=== PATIENT | female | born 1985 | race Caucasian/White ===

== ENCOUNTER 2021-04-17 11:53 | Emergency (ER) | payer OTHER ==
[~2021-04-17] VITALS: Ht 177.8 cm; Wt 65.0 kg
[2021-04-17] MEDS ORDERED: ONDANSETRON PF 4 MG/2 ML VIAL. ONE (12:12)
[2021-04-17] MEDS ORDERED: ONDANSETRON PF 4 MG/2 ML VIAL. IVP ONE (12:15)
[2021-04-17] MEDS ORDERED: IV NORMAL SALINE 1,000ML 1,000 ML IV SCH (12:15)
--- NOTE | 2021-04-17 12:16 | PHYS DOC ---
Past History Past Surgical History: No Surgical History (JOSEFINA RASHID APRN) General Adult EDM: Chief Complaint: ABDOMINAL PAIN HPI: HPI: Patient is a 35-year-old female who presents to the ER today for right lower quadrant pain that started this morning. She rates the pain 7 out of 10. It does not radiate. She took ibuprofen prior to arrival. Patient reports nausea also. She denies vomiting, diarrhea, fevers, flank pain, hematuria, dysuria, blood in her stools. Patient has a history of anxiety and migraines. (JOSEFINA RASHID APRN) Review of Systems: Review of Systems: 14 body systems of the review of systems have been reviewed. See HPI for pertinent positive and negative responses, otherwise all other systems are negative, nonpertinent or noncontributory (JOSEFINA RASHID APRN) Current Medications: Current Meds: Current Medications Medications (Trade) Dose Ordered Sig/Chitra Start Time Stop Time Status Last Admin Dose Admin Fentanyl Citrate (Fentanyl 2ml Vial) 50 mcg 1X ONCE 04/17/21 12:15 04/17/21 12:16 Ondansetron HCl (Zofran) 4 mg 1X ONCE 04/17/21 12:15 04/17/21 12:16 Sodium Chloride 1,000 ml @ 1,000 mls/hr Q1H 04/17/21 12:15 04/17/21 13:14 (JOSEFINA RASHID APRN) Allergies: Allergies: Allergies Coded Allergies Type Severity Reaction Last Updated Verified Penicillins Allergy Unknown 04/17/21 Yes (JOSEFINA RASHID APRN) Physical Exam: PE: Constitutional: Well developed, well nourished, no acute distress, non-toxic appearance. [] HENT: Normocephalic, atraumatic Eyes: PERRL, EOMI, conjunctiva normal, no discharge. [] Neck: Normal range of motion, no stridor Cardiovascular:Heart rate regular rhythm, no murmur [] Lungs & Thorax: Bilateral breath sounds clear to auscultation [] Abdomen: Bowel sounds normal, soft, right lower quadrant pain with palpation, negative Rovsing sign, negative Verdin sign no masses, no pulsatile masses. [] Skin: Warm, dry, no erythema, no rash. [] Back: Normal range of motion, negative CVA tenderness Extremities: No tenderness, no cyanosis, no clubbing, ROM intact, no edema. [] Neurologic: Alert and oriented X 3, normal motor function, normal sensory function, no focal deficits noted. [] Psychologic: Affect normal, judgement normal, mood normal. [] (JOSEFINA RASHID APRN) Current Patient Data: Labs: Laboratory Tests Test 04/17/21 12:06 04/17/21 13:00 04/17/21 13:17 White Blood Count 6.7 x10^3/uL Red Blood Count 4.30 x10^6/uL Hemoglobin 13.1 g/dL Hematocrit 39.8 % Mean Corpuscular Volume 93 fL Mean Corpuscular Hemoglobin 31 pg Mean Corpuscular Hemoglobin Concent 33 g/dL Red Cell Distribution Width 14.3 % Platelet Count 303 x10^3/uL Neutrophils (%) (Auto) 48 % Lymphocytes (%) (Auto) 34 % Monocytes (%) (Auto) 8 % Eosinophils (%) (Auto) 8 % Basophils (%) (Auto) 2 % Neutrophils # (Auto) 3.2 x10^3uL Lymphocytes # (Auto) 2.3 x10^3/uL Monocytes # (Auto) 0.6 x10^3/uL Eosinophils # (Auto) 0.5 x10^3/uL Basophils # (Auto) 0.1 x10^3/uL Sodium Level 138 mmol/L Potassium Level 3.6 mmol/L Chloride Level 105 mmol/L Carbon Dioxide Level 21 mmol/L Anion Gap 12 Blood Urea Nitrogen 11 mg/dL Creatinine 0.9 mg/dL Estimated GFR (Cockcroft-Gault) 71.3 BUN/Creatinine Ratio 12 Glucose Level 114 mg/dL Calcium Level 9.1 mg/dL Total Bilirubin 0.4 mg/dL Aspartate Amino Transf (AST/SGOT) 23 U/L Alanine Aminotransferase (ALT/SGPT) 27 U/L Alkaline Phosphatase 72 U/L Total Protein 7.2 g/dL Albumin 4.1 g/dL Albumin/Globulin Ratio 1.3 Lipase 109 U/L Urine Collection Type Unknown Urine Color Yellow Urine Clarity Cloudy Urine pH 8.5 Urine Specific [place] 1.015 Urine Protein Neg Urine Glucose (UA) Neg mg/dL Urine Ketones (Stick) Neg mg/dL Urine Blood Neg Urine Nitrite Neg Urine Bilirubin Neg Urine Urobilinogen Dipstick 0.2 mg/dL Urine Leukocyte Esterase Neg Urine RBC 0 /HPF Urine WBC 0 /HPF Urine Amorphous Sediment Present /HPF Urine Bacteria Few /HPF Bedside Urine HCG, Qualitative hcg negative Current Medications Medications (Trade) Dose Ordered Sig/Chitra Route PRN Reason Start Time Stop Time Status Last Admin Dose Admin Sodium Chloride 1,000 ml @ 1,000 mls/hr Q1H IV 04/17/21 12:15 04/17/21 13:14 DC 04/17/21 12:18 Fentanyl Citrate (Fentanyl 2ml Vial) 50 mcg 1X ONCE IVP 04/17/21 12:15 04/17/21 12:16 DC 04/17/21 12:17 Ondansetron HCl (Zofran) 4 mg 1X ONCE IVP 04/17/21 12:15 04/17/21 12:16 DC 04/17/21 12:16 Ondansetron HCl (Zofran) 4 mg STK-MED ONCE .ROUTE 04/17/21 12:12 04/17/21 12:13 DC Fentanyl Citrate (Fentanyl 2ml Vial) 100 mcg STK-MED ONCE .ROUTE 04/17/21 12:12 04/17/21 12:13 DC Iohexol (Omnipaque 300 Mg/ml) 75 ml 1X ONCE IV 04/17/21 12:30 04/17/21 12:31 DC 04/17/21 12:47 Info (Do NOT chart on this entry -- for MONITORING) 1 each PRN DAILY PRN MC SEE COMMENTS 04/17/21 12:30 04/19/21 12:29 Fentanyl Citrate (Fentanyl 2ml Vial) 50 mcg 1X ONCE IVP 04/17/21 12:45 04/17/21 12:46 DC 04/17/21 12:40 Magnesium Citrate (Citroma) 296 ml 1X ONCE PO 04/17/21 14:30 04/17/21 14:31 DC 04/17/21 14:31 Magnesium Citrate (Citroma) 296 ml STK-MED ONCE .ROUTE 04/17/21 14:30 04/17/21 14:30 DC Fentanyl Citrate (Fentanyl 2ml Vial) 50 mcg 1X ONCE IVP 04/17/21 16:15 04/17/21 16:16 DC Magnesium Citrate (Citroma) 296 ml 1X ONCE PO 04/17/21 16:30 04/17/21 16:31 UNV Vital Signs: Vital Signs Date Time Temp Pulse Resp B/P (MAP) Pulse Ox O2 Delivery O2 Flow Rate FiO2 04/17/21 11:59 98.0 64 20 139/72 (94) 100 Room Air (JOSEFINA RASHID APRN) EKG: EKG: [] (JOSEFINA RASHID APRN) Radiology/Procedures: Radiology/Procedures: []PROCEDURE: CT ABD PELV W/ IV CONTRST ONLY INDICATION: Reason: rlq pain / Spl. Instructions: OMNI 300 75ML IV ONLY / History: COMPARISON: None TECHNIQUE: Axial CT images were obtained through the abdomen and pelvis with intravenous contrast. One or more of the following individualized dose reduction techniques were utilized for this examination: 1. Automated exposure control; 2. Adjustment of the mA and/or kV according to patient size; 3. Use of iterative reconstruction technique. FINDINGS: 3 mm nodule right lung base anteriorly. Vascular: No abdominal aortic aneurysm. Hepatobiliary: Mild low density at the portal triads. Pancreas: Soft tissue density adjacent to the pancreas and spleen measuring 23 mm which would most commonly be from causes such as splenule but nonspecific appearance. Spleen: Heterogenous enhancement which limits evaluation. Renal/Bladder: Urinary bladder is well distended. Kidneys enhance symmetrically without significant hydronephrosis. Gastrointestinal: Moderate stool at proximal colon. Air-filled distention of po rtions of the colon. This includes at the left upper quadrant measuring up to approximately 7 cm. There is dilatation of the cecum with stool within measuring up to about 86 mm. The colon has a tortuous appearance and is difficult to follow through portion of its course secondary to tortuosity and lack of distention of portions. Moderate compression fracture of L2 with mild retropulsion. Mild compression fracture of L1. Small free fluid in the pelvis. Appendix is partially seen and does not appear grossly dilated in the visualized portion. IMPRESSION: * Tortuous appearance of the colon with regions of dilation including within the left upper quadrant of the abdomen which appears predominantly air-filled and at right lower quadrant which appears predominantly stool-filled. Is difficult to follow the colon secondary to tortuosity and portions appearing decompressed. Would correlate with symptoms since causes such as distal obstruction involving the colon or colonic ileus are within the differential. There is some tortuosity of the bowel and would be difficult to exclude causes such as internal hernia or partial mesenteric volvulus given this tortuosity and dilatation and would correlate with symptoms. * There is also some wall thickening of the duodenum seen reportedly with symptoms since duodenitis or duodenal ulcer could have this appearance. * Low-density at the portal triads. Could be related to the patient's fluid status but would correlate with symptoms and lab markers to ensure this is not from hepatitis or cholangitis. Electronically signed by: Gwendolyn Perez MD (04/17/2021 1:18 PM) [id number] DICTATED AND SIGNED BY: GWENDOLYN PEREZ MD DATE: 04/17/21 1309 CC: JOSEFINA RASHID APRN; ALBERTOJULIASANTIAGO HOLT ~MTH0 0 (JOSEFINA RASHID APRN) Heart Score: C/O Chest Pain: N/A Risk Factors: Risk Factors: DM, Current or recent (<one month) smoker, HTN, HLP, family history of CAD, obesity. Risk Scores: Score 0 - 3: 2.5% MACE over next 6 weeks - Discharge Home Score 4 - 6: 20.3% MACE over next 6 weeks - Admit for Clinical Observation Score 7 - 10: 72.7% MACE over next 6 weeks - Early Invasive Strategies (JOSEFINA RASHID APRN) Course & Med Decision Making: Course & Med Decision Making Pertinent Labs and Imaging studies reviewed. (See chart for details) [] Patient is a 35-year-old female being seen in the ER for right lower quadrant pain that started this morning with nausea. Work-up in the ER consisted of blood work, urinalysis and CT scan of abdomen. Patient was treated with fluids, nausea medication and pain medication. CBC and CMP were unremarkable. I discussed the CT findings with the GI doctor who suggested patient follow-up outpatient and is most likely constipated. I spoke with surgery on-call at [facility] and they agreed with GIs recommendations and advised for MiraLAX or mag citrate to help with constipation. Patient was given a bottle of mag citrate and was unable to have a bowel movement after 2 hours. Patient reports that her pain has improved but has gotten mildly worse after the next treat. Patient still states that she is comfortable with her level of pain. Spoke with Dr. Mesa regarding admission and he advised to give patient another bottle of mag citrate to go home with and that patient is most likely constipated. Patient will be given follow-up information with a GI doctor. Patient's vital signs are stable and she is agreeable with care plan. I discussed with patient all findings and diagnostic testing as well as the need to follow-up with PCP for further evaluation and treatment or return to the ER if any new or worsening symptoms. Strict return precautions were also discussed at length. Patient voiced understanding and agreement with the plan. Patient is hemodynamically stable at the time of disposition. (JOSEFINA RASHID APRN) Dragon Disclaimer: Mari Disclaimer: This electronic medical record was generated, in whole or in part, using a voice recognition dictation system. (JOSEFINA RASHID APRN) Attending Co-Sign The patient was seen and interviewed as well as examined at the bedside. The chart was reviewed. The case was discussed. Agree with the plan of care. (SUSAN BOSCH DO) Departure Departure: Impression: Primary Impression: Constipation Qualified Codes: K59.00 - Constipation, unspecified Disposition: HOME / SELF CARE / HOMELESS Condition: GOOD Referrals: JULIA DOMINGUEZ APRN (PCP) NASH GARZA MD Patient Instructions: Constipation, Adult Additional Instructions: You were seen in the ER today for abdominal pain. Your CT scan showed that you may have some constipation. You were given a bottle of magnesium citrate to take. Please take this as directed. Increase your fluids. Follow-up with your primary care provider tomorrow regarding your ER visit. You will be given referral information for a GI doctor as you may need a colonoscopy. Please return to the ER if you develop worsening of your abdominal pain, intractable nausea or vomiting, high fevers refractory to treatment, blood in your stools or vomit or any new or worsening concerns. EMERGENCY DEPARTMENT GENERAL DISCHARGE INSTRUCTIONS Thank you for coming to [facility] ([facility]) today and trusting us with you care. We trust that you had a positivie experience in our Emergency Department. If you wish to speak to the department management, you may call the director at . YOUR FOLLOW UP INSTRUCTIONS ARE FOLLOWS: 1. Do you have a private Doctor? If you do not have a private doctor, please ask for a resource list of physicians or clinics that may be able to assist you with follow up care. 2. The Emergency Physician has interpreted your x-rays. The X-Ray specialist will also review them. If there is a change in the findings, you will be notified in 48 hours when at all possible. 3. A lab test or culture has been done, your results will be reviewed and you will be notified if you need a change in treatment. ADDITIONAL INSTRUCTIONS AND INFORMATION: 1. Your care today has been supervised by a physician who is specially trained in emergency care. Many problems require more than one evaluation for a complete diagnosis and treatment. We recommend that you schedule your follow up appointment as recommended to ensure complete treatment of you illness or injury. If you are unable to obtain follow up care and continue to have a problem, or if your condition worsens, we recommend that you return to the ED. 2. We are not able to safely determine your condition over the phone nor are we able to give sound medical advice over the phone. For these safety reasons, if you call for medical advice we will ask you to come to the ED for further evaluation. 3. If you have any questions regarding these discharge instructions please call the ED at [phone]. SAFETY INFORMATION: In the interest of safety, wellness, and injury prevention; we encourage you to wear your sealbelt, if you smoke; quite smoking, and we encourage family to use a protective helmet for bicycling and other sporting events that present an increased risk for head injury. IF YOUR SYMPTOMS WORSEN OR NEW SYMPTOMS DEVELOP, OR YOU HAVE CONCERNS ABOUT YOUR CONDITION; OR IF YOUR CONDITION WORSENS WHILE YOU ARE WAITING FOR YOUR FOLLOW UP APPOINTMENT; EITHER CONTACT YOUR PRIMARY CARE DOCTOR, THE PHYSICIAN WHOSE NAME AND NUMBER YOU WERE GIVEN, OR RETURN TO THE ED IMMEDIATELY. JOSEFINA RASHID APRN Apr 17, 2021 12:16 SUSAN BOSCH DO Apr 18, 2021 09:15
[2021-04-17 12:23] LABS: BASO # 0.1 x10^3/uL (0.0-0.2); BASO % 2 % (0-3); EOS # 0.5 x10^3/uL (0.0-0.7); EOS % 8 % (0-3); HEMATOCRIT 39.8 % (36.0-47.0); HEMOGLOBIN 13.1 g/dL (12.0-15.5); LYMPH # 2.3 x10^3/uL (1.0-4.8); LYMPH % 34 % (24-48); MEAN CORPUSCULAR HEMOGLOBIN 31 pg (25-35); MEAN CORPUSCULAR HGB CONC 33 g/dL (31-37); MEAN CORPUSCULAR VOLUME 93 fL (79-100); MONO # 0.6 x10^3/uL (0.0-1.1); MONO % 8 % (0-9); NEUT # 3.2 x10^3uL (1.8-7.7); NEUT % 48 % (31-73); PLATELET COUNT 303 x10^3/uL (140-400); RED CELL DISTRIBUTION WIDTH 14.3 % (11.5-14.5); WHITE BLOOD COUNT 6.7 x10^3/uL (4.0-11.0)
[2021-04-17] MEDS ORDERED: CONTRAST GIVEN. MC PRN (12:30)
[2021-04-17] MEDS ORDERED: IOHEXOL 300 MG/ML 75 ML VIAL. IV ONE (12:30)
[2021-04-17 12:34] LABS: CALCIUM 9.1 mg/dL (8.5-10.1); CREATININE 0.9 mg/dL (0.6-1.0); GFR 71.3; POTASSIUM 3.6 mmol/L (3.5-5.1)
[2021-04-17 12:39] LABS: ALBUMIN 4.1 g/dL (3.4-5.0); ALBUMIN/GLOBULIN RATIO 1.3 (1.0-1.7); TOTAL BILIRUBIN 0.4 mg/dL (0.2-1.0); TOTAL PROTEIN 7.2 g/dL (6.4-8.2)
--- NOTE | 2021-04-17 13:21 | RAD ---
INDICATION: Reason: rlq pain / Spl. Instructions: OMNI 300 75ML IV ONLY / History: COMPARISON: None TECHNIQUE: Axial CT images were obtained through the abdomen and pelvis with intravenous contrast. One or more of the following individualized dose reduction techniques were utilized for this examinat ion: 1. Automated exposure control; 2. Adjustment of the mA and/or kV according to patient size; 3 . Use of iterative reconstruction technique. FINDINGS: 3 mm nodule right lung base anteriorly. Vascular: No abdominal aortic aneurysm. Hepatobiliary: Mild low density at the portal triads. Pancreas: Soft tissue density adjacent to the pancreas and spleen measuring 23 mm which would most co mmonly be from causes such as splenule but nonspecific appearance. Spleen: Heterogenous enhancement which limits evaluation. Renal/Bladder: Urinary bladder is well distended. Kidneys enhance symmetrically without significant h ydronephrosis. Gastrointestinal: Moderate stool at proximal colon. Air-filled distention of portions of the colon. T his includes at the left upper quadrant measuring up to approximately 7 cm. There is dilatation of th e cecum with stool within measuring up to about 86 mm. The colon has a tortuous appearance and is dif ficult to follow through portion of its course secondary to tortuosity and lack of distention of port ions. Moderate compression fracture of L2 with mild retropulsion. Mild compression fracture of L1. Small fr ee fluid in the pelvis. Appendix is partially seen and does not appear grossly dilated in the visuali zed portion. IMPRESSION: * Tortuous appearance of the colon with regions of dilation including within the left upper quadran t of the abdomen which appears predominantly air-filled and at right lower quadrant which appears pre dominantly stool-filled. Is difficult to follow the colon secondary to tortuosity and portions appear ing decompressed. Would correlate with symptoms since causes such as distal obstruction involving the colon or colonic ileus are within the differential. There is some tortuosity of the bowel and would be difficult to exclude causes such as internal hernia or partial mesenteric volvulus given this tort uosity and dilatation and would correlate with symptoms. * There is also some wall thickening of the duodenum seen reportedly with symptoms since duodenitis or duodenal ulcer could have this appearance. * Low-density at the portal triads. Could be related to the patient's fluid status but would correla te with symptoms and lab markers to ensure this is not from hepatitis or cholangitis. Electronically signed by: Steve Davis MD (04/17/2021 1:18 PM) [id number]
[2021-04-17 13:46] LABS: AMORPHOUS SEDIMENT,UR PRESENT /HPF; BACTERIA,URINE FEW /HPF (0-FEW); BILIRUBIN,URINE NEG (NEG); CLARITY,URINE CLOUDY; COLOR,URINE YELLOW; GLUCOSE,URINE NEG (NEG); NITRITE,URINE NEG (NEG); RBC,URINE 0 /HPF (0-2); UROBILINOGEN,URINE 0.2 mg/dL (0.2 mg/dL); WBC,URINE 0 /HPF (0-4)
[2021-04-17] MEDS ORDERED: MAGNESIUM CITRATE 296 ML SOLUTION. PO ONE ×2 (14:30→16:30)
[2021-04-17] MEDS ORDERED: MAGNESIUM CITRATE 296 ML SOLUTION. ONE (14:30)
[2021-04-17 16:20] VITALS: BP 126/76
== END 2021-04-17 16:32 | disposition home or self-care (01) ==
LOC: ER 11:53
DX: K59.00 Constipation, unspecified (principal); R10.31 Right lower quadrant pain; Z88.0 Allergy status to penicillin
CPT/HCPCS: 36415; 74177; 80053; 81001; 81025; 83690; 85025; 96361; 96374; 96375; 99285; J2405; J3010; J7030; Q9967